=== PATIENT | female | born 1970 | race African-American/Black ===

== ENCOUNTER 2024-09-26 07:14 | Inpatient (IN) | payer MEDICAID ==
[~2024-09-26] VITALS: Ht 170.2 cm; Wt 103.6 kg
[~2024-09-26 07:14] MED LIST: AMLO5TAB88 PO; HYDR25TA78 PO; ISOS60TA76 PO; LOSA100T33 PO
[2024-09-26 08:16] LABS: BASOPHILS % 1.1 % (0.0-2.0); EOSINOPHILS % 1.0 % (0.0-5.0); HEMATOCRIT. 37.6 % (36.0-48.0); HEMOGLOBIN. 12.7 g/dL (12.0-16.0); LYMPHOCYTES % 11.2 % (20.0-50.0); MEAN PLATELET VOLUME 7.3 fl (7.4-10.4); MONOCYTES % 5.8 % (2.0-8.0); NEUTROPHILS % 80.9 % (40.0-76.0); PLATELET 225 x1000/uL (130-400); RED BLOOD CELL COUNT 3.74 mill/uL (4.2-5.4); RED CELL DISTRIBUTION WIDTH 17.0 % (11.6-14.6)
[2024-09-26 08:32] LABS: CREATININE 0.8 mg/dL (0.6-1.0)
[2024-09-26 08:33] LABS: TROPONIN I HIGH SENSITIVITY < 4 ng/L (3.0-34); UREA NITROGEN BLOOD 10 mg/dL (9-23)
[2024-09-26] MEDS: ALBUTEROL (0.083%) 2.5MG/3ML NEB HHN STA (08:45)
[2024-09-26] MEDS: IPRATROPIUM BROMIDE (0.02%) 0.5MG/2.5ML NEB HHN STA (08:45)
[2024-09-26 08:47] VITALS: PULSE 106; RESP 19; O2SAT 100
[2024-09-26] MEDS: MAGNESIUM 2 G PREMIX 50 ML IV ONE (09:34)
[2024-09-26] MEDS: METHYLPREDNISOLONE SOD SUCC 125MG/2ML (ACT-O-VIAL) IV NR (09:38)
[2024-09-26] MEDS: METHYLPREDNISOLONE SOD SUCC 125MG/2ML (ACT-O-VIAL) IV STA (09:39)
[2024-09-26 10:26] LABS: TROPONIN I HIGH SENSITIVITY < 4 ng/L (3.0-34)
[2024-09-26] MEDS ORDERED: ONDANSETRON HCL 4MG/2ML INJ IV PRN (11:45)
[2024-09-26] MEDS ORDERED: ACETAMINOPHEN 325MG TABLET PO PRN (11:45)
[2024-09-26] MEDS ORDERED: DOCUSATE SODIUM 100MG CAPSULE PO PRN (11:45)
[2024-09-26 12:00] VITALS: BP 191/96; PULSE 110; RESP 20; TEMP 36.5; O2SAT 96
[2024-09-26 12:17] VITALS: BP 191/96; PULSE 110; RESP 20; TEMP 36.5292
[2024-09-26] MEDS ORDERED: INFLUENZA VACCINE 05/PF 0.5 ML SYRINGE IM ONE (13:00)
[2024-09-26] MEDS ORDERED: PNEUMOCOCCAL 20-VAL CONJ-DIP CRM 0.5ML IM ONE (13:00)
[2024-09-26] MEDS: POTASSIUM CHLORIDE 20MEQ TABLET SR PO SCH (13:48)
[2024-09-26] MEDS: HYDRALAZINE HCL 50MG TABLET PO SCH (13:48)
[2024-09-26 16:00] VITALS: BP_SYST 143; BP_SYST 188; BP_DIAS 101; BP_DIAS 78; PULSE 102; RESP 18; TEMP 36.4; O2SAT 97; O2SAT 98
[2024-09-26] MEDS: CLONIDINE 0.1MG TABLET PO PRN (17:49)
[2024-09-26] MEDS: HYDRALAZINE 20MG/ML VIAL IV SCH (18:00)
[2024-09-26 18:10] VITALS: PULSE 99; RESP 16; O2SAT 98
[2024-09-26] MEDS: IPRATROPIUM/ALBUTEROL 0.5-3(2.5)MG/3ML NEB HHN PRN (18:10)
[2024-09-26 19:06] LABS: CREATINE KINASE MB FRACTION 0.7 ng/mL (0.5-3.6)
[2024-09-26 19:08] LABS: TROPONIN I HIGH SENSITIVITY < 4 ng/L (3.0-34)
[2024-09-26 20:00] VITALS: BP 146/51; PULSE 114; RESP 20; TEMP 36.5; O2SAT 97
[2024-09-26] MEDS: ENOXAPARIN 40MG/0.4ML SYR SUBCUT SCH (21:17)
[2024-09-26] MEDS: ACETAMINOPHEN 325MG TABLET PO PRN (21:20)
[2024-09-27] VITALS: BP 147/89; PULSE 94; RESP 20; TEMP 36.4; O2SAT 97
[2024-09-27 00:08] LABS: CREATINE KINASE MB FRACTION < 0.5 ng/mL (0.5-3.6); TROPONIN I HIGH SENSITIVITY < 4 ng/L (3.0-34)
[2024-09-27] MEDS ORDERED: ZOLPIDEM TARTRATE 5MG TABLET PO PRN (02:00)
[2024-09-27 04:00] VITALS: BP 150/82; PULSE 97; RESP 20; TEMP 36.9; O2SAT 97
[2024-09-27] MEDS: OXYCODONE HCL/ACETAMINOPHEN 5/325MG TABLET PO PRN (04:28)
[2024-09-27 05:34] LABS: *AMPHETAMINES SCREEN URINE NEGATIVE (NEGATIVE); *BARBITURATES SCREEN URINE NEGATIVE (NEGATIVE); *BENZODIAZEPINES SCREEN URINE NEGATIVE (NEGATIVE); *COCAINE SCREEN URINE NEGATIVE (NEGATIVE); METHADONE URINE SCREEN NEGATIVE (NEGATIVE); PHENCYCLIDINE URINE SCREEN NEGATIVE (NEGATIVE)
[2024-09-27 05:35] LABS: CANNABINOID URINE SCREEN NEGATIVE (NEGATIVE); ECSTASY MDMA SCREEN URINE NEGATIVE (NEGATIVE)
[2024-09-27] MEDS: HYDRALAZINE HCL 25MG TABLET PO SCH (05:48)
[2024-09-27 07:24] LABS: BASOPHILS % 0.1 % (0.0-2.0); EOSINOPHILS % 0.0 % (0.0-5.0); HEMATOCRIT. 35.6 % (36.0-48.0); HEMOGLOBIN. 12.1 g/dL (12.0-16.0); LYMPHOCYTES % 7.7 % (20.0-50.0); MEAN PLATELET VOLUME 8.8 fl (7.4-10.4); MONOCYTES % 8.9 % (2.0-8.0); NEUTROPHILS % 83.3 % (40.0-76.0); PLATELET 222 x1000/uL (130-400); RED BLOOD CELL COUNT 3.50 mill/uL (4.2-5.4); RED CELL DISTRIBUTION WIDTH 17.1 % (11.6-14.6); TRIGLYCERIDE 89 mg/dL (0-150)
[2024-09-27 07:25] LABS: CREATININE 0.8 mg/dL (0.6-1.0); PROTEIN TOTAL 7.0 g/dL (6.0-8.3)
[2024-09-27 07:26] LABS: UREA NITROGEN BLOOD 20 mg/dL (9-23)
[2024-09-27 07:27] LABS: ASPARTATE AMINOTRANSFERASE 90 IU/L (<34); LDL CHOLESTEROL 121 mg/dL (5-100)
[2024-09-27 07:28] LABS: BILIRUBIN DIRECT 0.5 mg/dL (<=3.0); BILIRUBIN TOTAL 1.4 mg/dL (0.1-1.0); PHOSPHORUS 2.1 mg/dL (2.5-4.9)
[2024-09-27 07:30] LABS: INR 1.0
[2024-09-27 07:38] LABS: CLARITY URINE CLOUDY (CLEAR); COLOR URINE DARK YELLOW (YELLOW); GLUCOSE URINE 2+ (NEGATIVE); KETONES URINE TRACE (NEGATIVE); LEUKOCYTE ESTERASE URINE NEGATIVE (NEGATIVE); NITRITE URINE NEGATIVE (NEGATIVE); OCCULT BLOOD URINE NEGATIVE (NEGATIVE); PH URINE 6.5 (4.5-8.0); PROTEIN URINE 2+ (NEGATIVE); SPECIFIC GRAVITY URINE 1.034 (1.005-1.030); UROBILINOGEN URINE 1.0 E.U./dL (0.2-1.0)
[2024-09-27 07:59] LABS: BACTERIA URINE 4+; SQUAMOUS EPITHELIAL CELL URINE 1+ /lpf (RARE/1+); YEAST URINE NONE SEEN
[2024-09-27 08:00] VITALS: BP 151/94; PULSE 105; RESP 15; TEMP 36.3; O2SAT 97
[2024-09-27 08:38] LABS: OPIATES URINE SCREEN NEGATIVE (NEGATIVE)
[2024-09-27] MEDS ORDERED: LOSARTAN 50 MG TABLET PO SCH (09:00)
[2024-09-27] MEDS: ASPIRIN 81MG TABLET PO SCH (10:03)
[2024-09-27] MEDS: FAMOTIDINE 20MG/2ML VIAL IV SCH (10:03)
[2024-09-27] MEDS: LOSARTAN 100 MG TABLET PO SCH (10:03)
[2024-09-27] MEDS: AMLODIPINE 5MG TABLET PO SCH (10:04)
[2024-09-27] MEDS: ISOSORBIDE MONONITRATE 60MG TABLET SR 24HR PO SCH (10:04)
[2024-09-27 12:00] VITALS: BP 91/50; PULSE 69; RESP 15; TEMP 36.3; O2SAT 95
[2024-09-27 16:00] VITALS: BP 111/61; PULSE 70; RESP 70; TEMP 36.6; O2SAT 100
[2024-09-27 20:00] VITALS: BP 131/78; PULSE 89; RESP 18; TEMP 36.3; O2SAT 98
[2024-09-28] VITALS: BP 143/73; PULSE 98; RESP 17; TEMP 36.5; O2SAT 98
[2024-09-28 04:00] VITALS: BP 142/83; PULSE 96; RESP 20; TEMP 36.5; O2SAT 97
[2024-09-28 08:00] VITALS: BP 145/91; PULSE 116; RESP 17; TEMP 36.1; O2SAT 98
[2024-09-28 12:00] VITALS: BP 138/79; PULSE 109; RESP 18; TEMP 36.3; O2SAT 97
[2024-09-28] MEDS: CHLORDIAZEPOXIDE 25MG CAPSULE PO SCH (13:31)
[2024-09-28 16:00] VITALS: BP 143/89; PULSE 117; RESP 17; TEMP 36.2; O2SAT 98
[2024-09-28 20:00] VITALS: BP 133/79; PULSE 107; RESP 18; TEMP 36.7; O2SAT 98
[2024-09-28 22:08] LABS: HEPATITIS A AB IGM NEGATIVE (Negative)
[2024-09-28 22:09] LABS: HEPATITIS B CORE AB IGM NEGATIVE (Negative); HEPATITIS C AB NON REACTIVE (Neg) (Negative)
[2024-09-29] VITALS: BP 116/62; PULSE 103; RESP 18; TEMP 36.7; O2SAT 99
[2024-09-29 04:00] VITALS: BP 114/62; PULSE 93; RESP 19; TEMP 36.7; O2SAT 98
[2024-09-29 08:00] VITALS: BP 133/75; PULSE 96; RESP 15; TEMP 36.2; O2SAT 96
[2024-09-29 12:00] VITALS: BP 105/53; PULSE 110; RESP 15; TEMP 36.2; O2SAT 97
[2024-09-29] MEDS ORDERED: ASPI-1160 PO (13:09)
[2024-09-29 16:00] VITALS: BP 141/78; PULSE 95; RESP 17; TEMP 36.1; O2SAT 97
[2024-09-29] MEDS ORDERED: NALOXONE HCL 0.4MG/ML VIAL IV PRN (18:45)
[2024-09-29 19:59] VITALS: BP 140/86; PULSE 108; TEMP 97.1; O2SAT 96
[2024-10-01 09:11] LABS: COMPLEMENT C3 174 mg/dL (82-167); COMPLEMENT C4 29 mg/dL (12-38)
[2024-10-02 15:10] LABS: ANTI-NUCLEAR ANTIBODIES DIRECT Negative (Negative)
== END 2024-09-29 20:35 | disposition home or self-care (01) | DRG 194 ==
LOC: ER 07:14 → 6WST 09:41 → EDBEDREQ 09:46 → EDBEDREQTM 09:46
PROVIDERS: ADMIT Internal Medicine; ATTEND Internal Medicine
DX: I13.0 Hypertensive heart and chronic kidney disease with heart failure and stage 1 through stage 4 chronic kidney disease, or unspecified chronic kidney disease (principal); E11.22 Type 2 diabetes mellitus with diabetic chronic kidney disease; E83.39 Other disorders of phosphorus metabolism; K76.0 Fatty (change of) liver, not elsewhere classified; E66.9 Obesity, unspecified; I50.33 Acute on chronic diastolic (congestive) heart failure; I16.0 Hypertensive urgency; E87.6 Hypokalemia; R06.03 Acute respiratory distress; R00.0 Tachycardia, unspecified; E78.5 Hyperlipidemia, unspecified; I25.10 Atherosclerotic heart disease of native coronary artery without angina pectoris; N18.9 Chronic kidney disease, unspecified; N39.0 Urinary tract infection, site not specified; Z68.35 Body mass index [BMI] 35.0-35.9, adult
CPT/HCPCS: 36415; 71045; 71275; 76700; 80048; 80061; 80076; 80305; 81003; 82550; 82553; 83036; 83735; 83880; 84100; 84484; 85025; 85379; 86038; 86160; 86705; 86709; 87340; 93005; 93970; 94070; 94640; 94664; 98960; 99285; J0360; J1308; J1650; J2919; J3475